=== PATIENT | female | born 1970 | race Caucasian/White ===

== ENCOUNTER 2022-05-01 20:24 | Emergency (ER) | payer BC ==
[~2022-05-01] VITALS: Ht 162.6 cm; Wt 68.0 kg
[2022-05-01 20:30] VITALS: BP_SYST 136
[2022-05-01 21:28] LABS: BILIRUBIN,URINE NEGATIVE (NEGATIVE); BLOOD, URINE 3+ (NEGATIVE); CLARITY/URINE CLEAR (CLEAR); COLOR,URINE YELLOW (YELLOW); GLUCOSE,URINE NEGATIVE (NEGATIVE); KETONES,URINE NEGATIVE (NEGATIVE); LEUKOCYTE ESTERASE ,URINE NEGATIVE (NEGATIVE); NITRITE, URINE NEGATIVE (NEGATIVE); PH,URINE 5.5 (5.0-8.0); PROTEIN URINE NEGATIVE (NEGATIVE); UROBILINOGEN,URINE 0.2 (0.2-1.0)
[2022-05-01 21:36] LABS: BACTERIA,URINE FEW /HPF (None Seen); MUCUS,URINE None Seen /LPF (None Seen); WBC,URINE 0-3 /HPF (0-3)
[2022-05-01 21:53] LABS: BASOPHILS % (AUTO) 0.8 % (0.0-2.0); EOSINOPHILS % (AUTO) 0.7 % (0.0-4.0); LYMPHOCYTES # (AUTO) 0.9 K/uL (1.0-5.5); LYMPHOCYTES % (AUTO) 16.4 % (20.5-51.5); MEAN CORPUSCULAR HEMOGLOBIN 22 pg (27-31); MEAN CORPUSCULAR HGB CONC 30 % (32-36); MEAN CORPUSCULAR VOLUME 74 fL (79.0-98.0); MONOCYTES # (AUTO) 0.2 K/uL (0.0-1.0); MONOCYTES % (AUTO) 4.6 % (1.7-9.3); NEUTROPHILS # (AUTO) 4.1 K/uL (1.8-7.7); PLATELET COUNT (AUTO) 448 K/uL (130-430); WHITE BLOOD COUNT (AUTO) 5.3 K/uL (4.8-10.8)
[2022-05-01 21:57] LABS: HEMATOCRIT 21.5 % (36-48); HEMOGLOBIN 6.4 g/dL (12.0-16.0)
[2022-05-01 22:00] LABS: CALCIUM 8.1 mg/dL (8.4-11.0); CREATININE 0.4 mg/dL (0.55-1.30)
[2022-05-01 22:05] LABS: TOTAL BILIRUBIN 0.2 mg/dL (0.0-1.0)
[2022-05-02 03:30] VITALS: BP_SYST 131
[2022-05-04 15:08] LABS: NEUTROPHILS % (AUTO) 77.5 % (40.0-70.0)
== END 2022-05-02 03:30 | disposition home or self-care (01) ==
LOC: SED 20:24
DX: N93.8 Other specified abnormal uterine and vaginal bleeding (principal); R42 Dizziness and giddiness; Z79.899 Other long term (current) drug therapy
CPT/HCPCS: 99285; 36430; 76856; 80053; 81000; 85025; 86886; 86900; 86901; 86920; 36415; P9021; 99284

== ENCOUNTER 2022-06-04 22:25 | Emergency (ER) | payer BC ==
[~2022-06-04] VITALS: Ht 162.6 cm; Wt 67.1 kg
[2022-06-04 22:40] VITALS: BP_SYST 141
--- NOTE | 2022-06-04 22:53 | NUR ---
Patient to ER bed 2 to gown for evaluation. Side rails up. Report given to NICOLAS PARSONS(REG).
--- NOTE | 2022-06-04 22:59 | NUR ---
ER at bedside examining patient.
[2022-06-04 23:57] LABS: BASOPHILS % (AUTO) 0.5 % (0.0-2.0); EOSINOPHILS # (AUTO) 0.1 K/uL (0.0-0.4); EOSINOPHILS % (AUTO) 1.4 % (0.0-4.0); HEMATOCRIT 31.9 % (36-48); HEMOGLOBIN 10.6 g/dL (12.0-16.0); LYMPHOCYTES # (AUTO) 0.9 K/uL (1.0-5.5); LYMPHOCYTES % (AUTO) 22.9 % (20.5-51.5); MEAN CORPUSCULAR HEMOGLOBIN 28 pg (27-31); MEAN CORPUSCULAR HGB CONC 33 % (32-36); MEAN CORPUSCULAR VOLUME 84 fL (79.0-98.0); MONOCYTES # (AUTO) 0.2 K/uL (0.0-1.0); MONOCYTES % (AUTO) 5.1 % (1.7-9.3); NEUTROPHILS # (AUTO) 2.6 K/uL (1.8-7.7); NEUTROPHILS % (AUTO) 70.1 % (40.0-70.0); PLATELET COUNT (AUTO) 204 K/uL (130-430); RED BLOOD CELL COUNT(AUTO) 3.79 MIL/uL (4.2-6.2); RED CELL DISTRIBUTION WIDTH 20.4 % (9.0-15.0); WHITE BLOOD COUNT (AUTO) 3.8 K/uL (4.8-10.8)
[2022-06-05] MEDS ORDERED: MEDR10TA72 PO (00:10)
[2022-06-05 01:03] VITALS: BP_SYST 138
== END 2022-06-05 01:03 | disposition home or self-care (01) ==
LOC: SED 22:25
DX: N93.8 Other specified abnormal uterine and vaginal bleeding (principal); Z79.899 Other long term (current) drug therapy
CPT/HCPCS: 36415; 85025; 99283